=== PATIENT | male | born 1990 | race Two or more races ===

== ENCOUNTER 2024-05-10 20:20 | Inpatient (IN) | payer BC, OTHER ==
[~2024-05-10] VITALS: Ht 172.7 cm; Wt 83.5 kg
[2024-05-10 21:23] LABS: Basophils # (auto) 0.1 10 ^3/uL (0-0.2); Basophils % (auto) 0.5 % (0.0-2.0); Eosinophils # (auto) 0 10 ^3/uL (0-0.8); Eosinophils % (auto) 0.4 % (0.0-7.0); Hematocrit 40.3 % (41.0-53.0); Lymphocytes % (auto) 18.7 % (10.0-50.0); Mean Corpuscular Hemoglobin 29.6 pg (28.0-32.0); Mean Corpuscular Hgb Conc. 34.7 g/dL (32.0-36.0); Mean Corpuscular Volume 85.2 fL (80.0-100.0); Monocytes # (auto) 0.5 10 ^3/uL (0-1.3); Monocytes % (auto) 4.8 % (0.0-12.0); Neutrophils # (auto) 8.3 10 ^3/uL (1.6-8.6); Neutrophils % (auto) 75.6 % (37.0-80.0); Platelet Count (auto) 197 10^3/uL (140-450); Red Blood Cells 4.73 10^6/uL (4.5-5.90); Red Cell Distribution Width 13.1 % (11.8-14.3); White Blood Cell 10.9 10^3/uL (4.4-10.8)
[2024-05-10 21:35] LABS: Chloride 104 mmol/L (98-107); Potassium 3.8 mmol/L (3.5-5.1); Sodium 140 mmol/L (136-145)
[2024-05-10 21:36] VITALS: PULSE 89; RESP 17; O2SAT 97
[2024-05-10 21:36] LABS: Anion Gap 6 (5-15); Calcium 9.8 mg/dL (8.7-10.4); Carbon Dioxide 30 mmol/L (20-31)
[2024-05-10 21:41] LABS: BUN/Creatinine Ratio 14.5 (10.0-20.0); Blood Urea Nitrogen 12 mg/dL (9-23); Glucose 102 mg/dL (74-106)
--- NOTE | 2024-05-10 21:54 | DVH ---
CHEST RADIOGRAPH Indication: sob Technique: Single frontal view of the chest was obtained Comparison: None FINDINGS: Lines and Tubes: None Lungs: No focal consolidation. Pleura: No effusion. No pneumothorax. Cardiomediastinal contours: Unremarkable Bones: No acute osseous abnormality. IMPRESSION: 1. No acute cardiopulmonary disease. HS:Y
[2024-05-10] MEDS: fentaNYL CITRATE 100 MCG/2 ML VL IV ONE (21:56)
[2024-05-10] MEDS: LORazepam 2MG/ML-1ML VIAL IV ONE (22:02)
[2024-05-10] MEDS: SODIUM CHLORIDE 0.9% 1,000 ML IV ONE (22:02)
[2024-05-10] MEDS: cefTRIAXone 1GM/50ML D5W 50 ML IV ONE (22:02)
--- NOTE | 2024-05-10 22:17 | DVH ---
Indication: rlq pain Technique: CT axial images of the abdomen and pelvis are obtained without contrast. Coronal and sagit meredith reformats were obtained. Radiation Dose Information: CTDI volume is 6.4 mGy. Dose-length product is 335 mGy*cm Comparison: None FINDINGS: There is limited interpretation of the abdomen and pelvis without administration of intravenous contr ast. Pulmonary emphysematous changes. Adrenal glands, spleen, pancreas liver unremarkable in shape. No CT evidence for cholelithiasis. Kidneys demonstrate no hydronephrosis. Stomach is partially distended. Small bowel loops normal in caliber. Moderate volume stool within the colon. Appendix is inflamed and measures 10 mm in diameter. 2 mm appendicolith. Periappendiceal stranding. Bladder partially distended. No free pelvic fluid. No inguinal lymphadenopathy. IMPRESSION: 1. Acute appendicitis. Findings were communicated to Dr. Dukes at 2212 hours on 05/11/2024.
[2024-05-10 22:33] LABS: Blood Alcohol < 3.0 mg/dL (<10)
--- NOTE | 2024-05-10 22:38 | ED.PDOC ---
History of Present Illness HPI Comments 34 y/o M presents with c/o non-radiating, RLQ abdominal pain, today. Patient reports sudden and unprovoked onset of symptoms at around 1300, this evening, that has been, progressively, worsening since. He denies any nausea, vomiting, or diarrhea along with having any significant medical or surgical history. He does admit to heavy alcohol consumption, lately, which includes 1x beer every day. Chief Complaint: Abdominal Pain Time Seen by MD: 20:50 Reviewed Notes: Nurses Notes, Medications, Allergies Allergies: Coded Allergies: NO KNOWN ALLERGIES (Unverified , 05/10/24) Information Source: Patient Mode of Arrival: Ambulatory Past Medical History PAST MEDICAL HISTORY: Denies Surgical History: Denies all surgeries Social History Smoker: Non-Smoker Alcohol: Denies ETOH Use Drugs: Denies Drug Use Lives In: Home All Other Systems: Reviewed and Negative (Comprehensive systems review obtained and negative except for what is stated in the HPI.) Physical Exam General Appearance: No Apparent Distress, Normal, Other (mildly anxious, slightly tremulous) HEENT: Normal ENT Inspection, Pharynx Normal, TMs Normal Neck: Full Range of Motion, Non-Tender, Normal, Normal Inspection Respiratory: Chest Non-Tender, Lungs Clear, No Accessory Muscle Use, No Respiratory Distress, Normal Breath Sounds Cardiovascular: No Edema, No JVD, No Murmur, No Gallop, Normal Peripheral Pulses, Regular Rate/Rhythm Breast Exam: Deferred Gastrointestinal: No Organomegaly, No Pulsatile Mass, Normal Bowel Sounds, RLQ (tenderness ), Soft Genitalia: Deferred Pelvic: Deferred Rectal: Deferred Extremities: No calf tenderness, Normal capillary refill, Normal inspection, Normal range of motion, Non-tender, No pedal edema Musculoskeletal : Apperance: Normal Neurologic: Alert, saw filer II-XII nml as Tested, No Motor Deficits, Normal Affect, Normal Mood, No Sensory Deficits Cerebellar Function: Normal Reflexes: Normal Skin: Dry, Normal Color, Warm Lymphatic: No Adenopathy Was a procedure done? Was a procedure done?: No Differential Dx Considerations may include: appendicitis, diverticulitis, cholelithiasis, cholecystitis, pyelonephritis, nephrolithiasis, gastritis, gastroenteritis, among others X-Ray, Labs, Meds, VS Vital Signs Date Time Temp Pulse Resp B/P (MAP) Pulse Ox O2 Delivery O2 Flow Rate FiO2 05/10/24 21:56 164/104 05/10/24 21:36 89 17 97 Room Air* 0 21 05/10/24 21:35 98.3 89 19 164/103 (123) 100 98.3 05/10/24 20:21 98.7 95 20 166/86 (112) 99 98.7 Lab Test 05/10/24 21:10 Range/Units White Blood Count 10.9 H 4.4-10.8 10^3/uL Red Blood Count 4.73 4.5-5.90 10^6/uL Hemoglobin 14.0 13.5-17.5 g/dL Hematocrit 40.3 L 41.0-53.0 % Mean Corpuscular Volume 85.2 80.0-100.0 fL Mean Corpuscular Hemoglobin 29.6 28.0-32.0 pg Mean Corpuscular Hemoglobin Concent 34.7 32.0-36.0 g/dL Red Cell Distribution Width 13.1 11.8-14.3 % Platelet Count 197 140-450 10^3/uL Mean Platelet Volume 8.8 6.9-10.8 fL Neutrophils (%) (Auto) 75.6 37.0-80.0 % Lymphocytes (%) (Auto) 18.7 10.0-50.0 % Monocytes (%) (Auto) 4.8 0.0-12.0 % Eosinophils (%) (Auto) 0.4 0.0-7.0 % Basophils (%) (Auto) 0.5 0.0-2.0 % Neutrophils # (Auto) 8.3 1.6-8.6 10 ^3/uL Lymphocytes # (Auto) 2.0 0.4-5.4 10 ^3/uL Monocytes # (Auto) 0.5 0-1.3 10 ^3/uL Eosinophils # (Auto) 0 0-0.8 10 ^3/uL Basophils # (Auto) 0.1 0-0.2 10 ^3/uL Nucleated Red Blood Cells 0.0 % Sodium Level 140 136-145 mmol/L Potassium Level 3.8 3.5-5.1 mmol/L Chloride Level 104 98-107 mmol/L Carbon Dioxide Level 30 20-31 mmol/L Anion Gap 6 5-15 Blood Urea Nitrogen 12 9-23 mg/dL Creatinine 0.83 0.700-1.30 mg/dL Glomerular Filtration Rate Calc 119 >90 mL/min BUN/Creatinine Ratio 14.5 10.0-20.0 Serum Glucose 102 74-106 mg/dL Calcium Level 9.8 8.7-10.4 mg/dL Plasma/Serum Blood Alcohol < 3.0 <10 mg/dL Current Medications Medications (Trade) Dose Ordered Sig/Mary Beth Route Start Time Stop Time Status Last Admin Lorazepam (Ativan Inj) 0.5 mg ONCE ONCE IV 05/10/24 21:30 05/10/24 21:31 DC 05/10/24 22:02 Fentanyl Citrate 12.5 mcg ONCE ONCE IV 05/10/24 21:30 05/10/24 21:31 DC 05/10/24 21:56 Sodium Chloride 1,000 ml @ 1,000 mls/hr Q1H ONCE IV 05/10/24 21:30 05/10/24 22:29 DC 05/10/24 22:02 Ceftriaxone Sodium 50 ml @ 100 mls/hr ONCE ONCE IV 05/10/24 21:30 05/10/24 21:59 DC 05/10/24 22:02 [place] [address] Ph: [phone] DIAGNOSTIC IMAGING Diagnostic Imaging Report : [id number] Signed PATIENT: KARINE GRAVES ACCT: [id number] UNIT: [id number] : 1990 LOC: ER ROOM / BED: / AGE / SEX: 34 / M ADM STATUS: REG ER SERVICE 57 ORDERING PHYSICIAN: CAROLA WILKS MD PROCEDURE(s): CXR1 - CHEST XRAY 1 VIEW REASON: sob ORDER NUMBER(s): [id number], ACCESSION NUMBER(s): [id number] CHEST RADIOGRAPH Indication: sob Technique: Single frontal view of the chest was obtained Comparison: None FINDINGS: Lines and Tubes: None Lungs: No focal consolidation. Pleura: No effusion. No pneumothorax. Cardiomediastinal contours: Unremarkable Bones: No acute osseous abnormality. IMPRESSION: 1. No acute cardiopulmonary disease. HS:Y ATED BY: MOON QUICK Jr. DO DICTATED DATE/TIME: 05/10/242151 SIGNED BY: MOON QUICK Jr., DO SIGNED DATE/TIME: 05/10/242151 CC: [place] [address] Ph: [phone] DIAGNOSTIC IMAGING Diagnostic Imaging Report : [id number] Signed PATIENT: KARINE GRAVES ACCT: [id number] UNIT: [id number] : 1990 LOC: ER ROOM / BED: / AGE / SEX: 34 / M ADM STATUS: REG ER SERVICE 16 ORDERING PHYSICIAN: CAROLA WILKS MD PROCEDURE(s): ABPL - CT AB PEL WO CON-NO ORAL OR IV REASON: rlq pain ORDER NUMBER(s): [id number], ACCESSION NUMBER(s): [id number] Indication: rlq pain Technique: CT axial images of the abdomen and pelvis are obtained without contrast. Coronal and sagittal reformats were obtained. Radiation Dose Information: CTDI volume is 6.4 mGy. Dose-length product is 335 mGy*cm Comparison: None FINDINGS: There is limited interpretation of the abdomen and pelvis without administration of intravenous contrast. Pulmonary emphysematous changes. Adrenal glands, spleen, pancreas liver unremarkable in shape. No CT evidence for cholelithiasis. Kidneys demonstrate no hydronephrosis. Stomach is partially distended. Small bowel loops normal in caliber. Moderate volume stool within the colon. Appendix is inflamed and measures 10 mm in diameter. 2 mm appendicolith. Periappendiceal stranding. Bladder partially distended. No free pelvic fluid. No inguinal lymphadenopathy. IMPRESSION: 1. Acute appendicitis. Findings were communicated to Dr. Wilks at 2212 hours on 05/11/2024. ATED BY: KENDRICK MCDANIEL MD DICTATED DATE/TIME: 05/10/242214 SIGNED BY: KENDRICK MCDANIEL MD SIGNED DATE/TIME: 05/10/242214 CC: Time of 1ST Reevaluation: 21:20 Reevaluation 1ST: Unchanged Time of 2ND Reevaluation: 22:38 Reevaluation 2ND: Unchanged Patient Education/Counseling: Diagnosis, Treatment, Prognosis, Need For Follow Up Family Education/Counseling: No Family Present Additional Information Previous visit documents reviewed: n/a The following tests were ordered, and results were reviewed by me: CT abdomen/pelvis w/o contrast, CXR, blood alcohol, UA, rapid influenza A/B test, BMP, CBC, CXR Additional Information was gathered from interviewing the following independent historians: n/a I reviewed and agreed with the following test results read by other providers: CT abdomen/pelvis w/o contrast, CXR I discussed treatment and results with medical personnel and: Patient we are consulting Dr Solomon, surgery and hospitalist to admit Departure 1 Departure Time of Disposition: 22:39 Impression: Primary Impression: Appendicitis Qualified Codes: K35.80 - Unspecified acute appendicitis Disposition: ADMITTED INPATIENT Admit to: Med Surg Condition: Stable Discharged With: Self Critical Care Note Critical Care Time?: Yes (55 min-critical care time only) Critical care comment: Due to concerns for patients condition deteriorating, the care required my highest level of attention and readiness to intervene. I assessed the patient, reviewed the medical records, ordered the appropriate tests and treatments, then reassessed for results and responsiveness. I communicated with medical personnel and consultants and formulated a plan of care. Total critical care time excludes any procedures Stability Stability form required: No Heart Score Heart Score: Heart Score Response (Comments) Value History N/A 0 EKG N/A 0 Age N/A 0 Risk Factors N/A 0 Troponin N/A 0 Total 0 I personally scribed for CAROLA WILKS MD ([email or web address]) on 05/10/24 at 22:38. Electronically submitted by Ravinder Shepherd ([email or web address]). CAROLA WILKS MD May 10, 2024 22:38
[2024-05-11] VITALS (8 sets, daily range): BP systolic 123–134; BP diastolic 67–97; PULSE 73–96; RESP 16–20; TEMP 97.9–98.8; O2SAT 95–100
[2024-05-11 01:14] LABS: Urine Bacteria None Seen /hpf (None Seen)
[2024-05-11 01:22] LABS: Urine Blood Negative /uL (Negative); Urine Clarity Clear (Clear); Urine Color Light-Yellow (Yellow); Urine Mucus FEW (None Seen); Urine Protein, UAD Negative (Negative); Urine Specific Gravity 1.027 (1.001-1.035); Urine Squamous Epithelial Cell None Seen /hpf (<5); Urine Urobilinogen Normal (Negative); Urine WBC < 1 /HPF (0-3); Urine pH 6.5 (5.0-9.0)
[2024-05-11] MEDS ORDERED: MORPHINE SULFATE INJ 2 MG/ml SYRG IV PRN (04:45)
[2024-05-11] MEDS ORDERED: NITROGLYCERIN 0.4 MG SL TAB SL PRN (04:45)
[2024-05-11] MEDS: CIPROFLOXACIN 400MG/200ML 200 ML IV ONE (05:02)
[2024-05-11] MEDS ORDERED: LORazepam 2MG/ML-1ML VIAL IM PRN (05:15)
--- NOTE | 2024-05-11 05:16 | DVHHPRES ---
History of Present Illness Resident Creating Document: HOME LATIF RESIDENT History of Present Illness Mr. Monk,a 34-year-old male presented with non-radiating right lower quadrant abdominal pain that began suddenly and unprovoked at around 13:00 of 05/10, progressively worsening since. He denies nausea, vomiting, diarrhea, and has no significant medical or surgical history. He admits to heavy alcohol consumption, drinking one beer daily, last drink yesterday. No known allergies, and arrived ambulatory. He is a non-smoker, denies drug use, and lives at home. Was found to have acute appendicitis, admitted for surgical evaluation and management. Past Medical History None Past Surgical History None Smoke: No ALCOHOL: heavy Drugs: None Lives: with Family (at home. ) Review of Systems Constitutional: Yes: Malaise; No: Fever, Chills, Sweats, Weakness, Other Eyes: No: Pain, Vision change, Conjunctivae inflammation, Eyelid inflammation, Other, Redness ENT: No: Ear pain, Ear discharge, Nose pain, Nose discharge, Nose congestion, Mouth pain, Mouth swelling, Throat pain, Throat swelling, Other Respiratory: No: Cough, Dry, Shortness of breath, SOB with excertion, Wheezing, Hemoptysis, Pleuritic Pain, Sputum, Wheezing, Other Cardiovascular: No: Chest Pain, Palpitations, Orthopnea, Paroxysmal Noc. Dyspnea, Edema, Lt Headedness, Other Gastrointestinal: Abdominal Pain; No: Nausea, Vomiting, Diarrhea, Constipation, Melena, Hematochezia, Other Genitourinary: No Dysuria, No Frequency, No Incontinence, No Hematuria, No Retention, No Other Musculoskeletal: No: other, neck pain, shoulder pain, arm pain, back pain, hand pain, leg pain, foot pain Skin: No: Rash, Lesions, Jaundice, Bruising, Other Neurological: No: Weakness, Numbness, Incoordination, Change in speech, Confusion, Seizures, Other Allergies: Coded Allergies: NO KNOWN ALLERGIES (Unverified , 05/10/24) Medications Current Medications Medications Dose Ordered Sig/Mary Beth Route Start Time Stop Time Status Last Admin Dose Admin Nitroglycerin 0.4 mg Q5MINP PRN SL 05/11/24 04:45 Morphine Sulfate 2 mg Q30M PRN IV 05/11/24 04:45 Ciprofloxacin 200 ml @ 200 mls/hr Q12HR IV 05/11/24 22:00 Metronidazole 100 ml @ 100 mls/hr Q8HR IV 05/11/24 14:00 Exam Vital Signs Vital Signs Date Time Temp Pulse Resp B/P (MAP) Pulse Ox O2 Delivery O2 Flow Rate FiO2 05/10/24 21:56 164/104 05/10/24 21:36 89 17 97 Room Air* 0 21 05/10/24 21:35 98.3 98.3 General Appearance: Alert, Oriented X3, Cooperative, No acute distress HEENT: Atraumatic, PERRLA, EOMI, Mucous membr. moist/pink Respiratory: Clear to auscultation, Normal air movement Cardiovascular: Regular rate, Normal S1, Normal S2, No murmurs, Gallops, Rubs Abdominal: Soft, Other (RLQ tenderness, rovsing +ve) Extremities: No clubbing, No cyanosis, No edema, Normal pulses, No tenderness/swelling Skin: No rashes, No breakdown, No significant lesion Neuro: Normal gait, Normal speech, Strength at 5/5 X4 ext, Normal tone, Sensation intact, Cranial nerves 3-12 NL, Reflexes 2+ Psych/Mental Status: Mental status NL, Mood NL Labs/Xrays Labs Test 05/10/24 21:16 05/10/24 21:10 Range/Units Urine Color Light-yellow Yellow Urine Clarity Clear Clear Urine pH 6.5 5.0-9.0 Urine Specific [place] 1.027 1.001-1.035 Urine Protein Negative Negative Urine Ketones Negative Negative Urine Blood Negative Negative /uL Urine Nitrite Negative Negative Urine Bilirubin Negative Negative Urine Urobilinogen Normal Negative mg/dL Urine Leukocyte Esterase Negative Negative /uL Urine RBC None seen 0 - 3 /hpf Urine Microscopic WBC < 1 0-3 /HPF Urine Squamous Epithelial Cells None seen <5 /hpf Urine Bacteria None seen None Seen /hpf Urine Mucus Few None Seen Urine Glucose Normal Normal mg/dL White Blood Count 10.9 H 4.4-10.8 10^3/uL Red Blood Count 4.73 4.5-5.90 10^6/uL Hemoglobin 14.0 13.5-17.5 g/dL Hematocrit 40.3 L 41.0-53.0 % Mean Corpuscular Volume 85.2 80.0-100.0 fL Mean Corpuscular Hemoglobin 29.6 28.0-32.0 pg Mean Corpuscular Hemoglobin Concent 34.7 32.0-36.0 g/dL Red Cell Distribution Width 13.1 11.8-14.3 % Platelet Count 197 140-450 10^3/uL Mean Platelet Volume 8.8 6.9-10.8 fL Neutrophils (%) (Auto) 75.6 37.0-80.0 % Lymphocytes (%) (Auto) 18.7 10.0-50.0 % Monocytes (%) (Auto) 4.8 0.0-12.0 % Eosinophils (%) (Auto) 0.4 0.0-7.0 % Basophils (%) (Auto) 0.5 0.0-2.0 % Neutrophils # (Auto) 8.3 1.6-8.6 10 ^3/uL Lymphocytes # (Auto) 2.0 0.4-5.4 10 ^3/uL Monocytes # (Auto) 0.5 0-1.3 10 ^3/uL Eosinophils # (Auto) 0 0-0.8 10 ^3/uL Basophils # (Auto) 0.1 0-0.2 10 ^3/uL Nucleated Red Blood Cells 0.0 % Sodium Level 140 136-145 mmol/L Potassium Level 3.8 3.5-5.1 mmol/L Chloride Level 104 98-107 mmol/L Carbon Dioxide Level 30 20-31 mmol/L Anion Gap 6 5-15 Blood Urea Nitrogen 12 9-23 mg/dL Creatinine 0.83 0.700-1.30 mg/dL Glomerular Filtration Rate Calc 119 >90 mL/min BUN/Creatinine Ratio 14.5 10.0-20.0 Serum Glucose 102 74-106 mg/dL Calcium Level 9.8 8.7-10.4 mg/dL Plasma/Serum Blood Alcohol < 3.0 <10 mg/dL Assessment/Plan Assessment/Plan # acute appendicitis: Presented with acute abdominal pain, CT evident Appendix is inflamed and measures 10 mm in diameter. 2 mm appendicolith. Periappendiceal stranding. Mild leukocytosis, hemodynamically stable, presented with acute abdominal pain, lactate, lipase, CMP pending. NPO for now, IV fluid to continue, wait for surgical evaluation and possible surgical intervention. With lap appendicectomy, as needed IV morphine for pain management. IV antibiotic coverage with Cipro + Flagyl till surgery rules out any ruptures/complications. # hypertension: Patient does not have any history of hypertension, blood pressure elevated if needed use clonidine 0.1, t.i.d. when patient can tolerate oral, otherwise use hydralazine if the systolic blood pressure over 150. [place] blood pressure 140/90 or below as per AHA/ACC guidelines , pending EKG and echo for preoperative risk assessment only # moderate alcohol use: Daily alcohol consumption with at least 1 beer, patient is counseled regarding detrimental effects of alcohol, close follow up to rule out any withdrawal symptoms. IV thiamine, folate to continue, banana bag when available. # Risk of possible refeeding syndrome: when patient starts oral diet in poor nutrition, moderate alcohol abuse look for electrolytes on daily basis. # poor health follow up: Patient is advice to follow up with primary care physician closely post discharge. # GI prophylaxis: IV PPI daily # DVT prophylaxis: Mostly mobile, SCDs for now if patient becomes immobile, consider starting enoxaparin sc. Code status: Full code, discussed at bedside, including care plan and management which patient is agreeable, needed total [address] Cao Plan discussed with: Patient, Other (RN) My Orders Orders - HOME LATIF RESIDENT Procedure Category Date Status Time Admit ADMIT 05/11/24 Transmitted 04:40 Nitroglycerin PHA 05/11/24 In Process Sublingual (Ntrostat 04:45 Morphine Sulfate PHA 05/11/24 In Process Injection 04:45 Oxygen By Nasal RT 05/11/24 Transmitted Cannula 04:40 Stat Ekg For Chest CANDI 05/11/24 In Process Pain 04:40 Notify Md Of Changes CANDI 05/11/24 In Process From Base 04:40 Retail Analyst For CANDI 05/11/24 In Process 24 Hours 04:40 Emergency Dysrhythmia CANDI 05/11/24 In Process Protocol 04:40 Rhythm Strips Once CANDI 05/11/24 In Process Every Shift 04:40 Ciprofloxacin PHA 05/11/24 In Process 400mg/200ml (Cipro Iv) 04:45 Metronidazole PHA 05/11/24 In Process 500mg/100ml (Flagyl 04:45 Ciprofloxacin PHA 05/11/24 In Process 400mg/200ml (Cipro Iv) 22:00 Metronidazole PHA 05/11/24 In Process 500mg/100ml (Flagyl 14:00 * Surgical Consult CONS 05/11/24 Transmitted Complete Blood Count LAB 05/11/24 Logged 04:44 Comprehensive LAB 05/11/24 Logged Metabolic Panel 04:44 Drug Screen LAB 05/11/24 Logged 04:44 Npo (Nothing By DIET 05/11/24 Transmitted Mouth) Diet Breakfast Lactated Ringers Lr PHA 05/11/24 Transmitted 04:45 Urinalysis LAB 05/11/24 Logged 04:44 Prothrombin Time W/ LAB 05/11/24 Logged INR 04:44 Lipase LAB 05/11/24 Logged 04:44 Lactic Acid W/ Reflex LAB 05/11/24 Logged Order 04:44 Pantoprazole PHA 05/11/24 Transmitted (Protonix) 06:00 Thiamine Inj PHA 05/11/24 Transmitted 04:45 Thiamine Inj PHA 05/11/24 Transmitted 10:00 Folic Acid Ivpb PHA 05/11/24 Transmitted 10:00 Banana Bag Ns PHA 05/11/24 Transmitted 18:00 Thyroid Stimulating LAB 05/11/24 Logged Hormone 04:44 Clonidine Hcl Tablet PHA 05/11/24 Transmitted (Catapres Tablet) 06:00 Hydralazine Injection PHA 05/11/24 Transmitted (Apresoline Inject 06:00 Date of Service: May 11, 2024 Billing Provider: BARBARA CAO MD Common Visit Codes: [id number] INP/OBS CARE (HIGH) HOME LATIF RESIDENT May 11, 2024 05:16 BARBARA CAO MD May 11, 2024 11:26
[2024-05-11] MEDS: metroNIDAZOLE 500MG/100ML 100 ML IV ONE (05:31)
[2024-05-11 05:36] LABS: Basophils # (auto) 0 10 ^3/uL (0-0.2); Basophils % (auto) 0.4 % (0.0-2.0); Eosinophils # (auto) 0 10 ^3/uL (0-0.8); Eosinophils % (auto) 0.1 % (0.0-7.0); Hematocrit 42.2 % (41.0-53.0); Hemoglobin 14.3 g/dL (13.5-17.5); Lymphocytes # (auto) 1.6 10 ^3/uL (0.4-5.4); Lymphocytes % (auto) 16.2 % (10.0-50.0); Mean Corpuscular Hemoglobin 29.1 pg (28.0-32.0); Mean Corpuscular Hgb Conc. 33.9 g/dL (32.0-36.0); Mean Corpuscular Volume 86.1 fL (80.0-100.0); Monocytes # (auto) 0.6 10 ^3/uL (0-1.3); Monocytes % (auto) 6.4 % (0.0-12.0); Neutrophils # (auto) 7.5 10 ^3/uL (1.6-8.6); Neutrophils % (auto) 76.9 % (37.0-80.0); Platelet Count (auto) 185 10^3/uL (140-450); Red Blood Cells 4.91 10^6/uL (4.5-5.90); Red Cell Distribution Width 12.9 % (11.8-14.3); White Blood Cell 9.7 10^3/uL (4.4-10.8)
[2024-05-11 05:51] LABS: Alanine Aminotransferase 29 U/L (7-40); Alkaline Phosphatase 77 U/L (46-116); Anion Gap 6 (5-15); BUN/Creatinine Ratio 12.8 (10.0-20.0); Blood Urea Nitrogen 10 mg/dL (9-23); Carbon Dioxide 27 mmol/L (20-31); Chloride 105 mmol/L (98-107); Glucose 104 mg/dL (74-106); Lipase 25 U/L (12-53); Sodium 138 mmol/L (136-145); Total Protein 7.4 g/dL (5.7-8.2)
[2024-05-11 05:52] LABS: Albumin 5.2 g/dL (3.2-4.8); Aspartate Aminotransferase 11 U/L (13-40); Bilirubin, Total 1.3 mg/dL (0.2-1.0)
[2024-05-11] MEDS: LACTATED RINGER'S 1,000 ML IV ONE (05:54)
[2024-05-11] MEDS: THIAMINE 100mg/ml INJ (200mg/2ml VIAL) IV ONE (05:54)
[2024-05-11 06:04] LABS: INR 1.02 (0.9-1.15); Prothrombin Time 10.8 sec (9.3-11.8)
[2024-05-11 06:22] LABS: Rapid Influenza A Negative (Negative); Rapid Influenza B Negative (Negative)
--- NOTE | 2024-05-11 10:24 | DVHINCON2 ---
Date of service: May 11, 2024 Reason for Consultation appendicitis History of Present Illness History Source: Patient Exam Limitations: No limitations HPI 34 year old male presented to the ER with complaint of right lower quadrant pain for the past 24 hours. Patient states the pain is sharp 10/10 to RLQ. Denies nausea,fever and vomiting. Chief Complaint of Abdominal/F: Abdominal pain Location of Abdominal Onset: RLQ Past Medical History Cardiac: No pertinent Hx Pulmonary: No pertinent Hx Central Nervous System: No pertinent Hx GI: No pertinent Hx Hemotology/Oncology: No pertinent Hx Hepatobiliary: No pertinent Hx Psychiatric: No pertinent Hx Musculoskeletal: No pertinent Hx Rheumotologic: No pertinent Hx Infectious Disease: No peritnent Hx ENT: No pertinent Hx Renal/: No pertinent Hx Endocrine: No pertinent Hx Dermatology: No pertinent Hx Past Surgical History: No pertinent Hx Family History: No pertinent Hx Patient Family History: Diabetes mellitus G8 FATHER Smoker: No Hx (Negative) Alocohol: Moderate, Heavy (one beer daily) Drugs: None Lives with: With family Review of Systems Constitutional: No symptom reported Ears, Nose, & Throat: No symptom reported Eyes: No symptom reported Pulmonary/Respiratory: No symptom reported Cardiovascular: No symptom reported Gastrointestinal: Abdominal Pain Genitourinary: No symptom reported Musculoskeletal: No symptom reported Skin: No symptom reported Psychiatric: No symptom reported Endocrine: No symptom reported Hemotologic/Lymphatic: No symptom reported H&P Exam Vital Signs Vital Signs Date Time Temp Pulse Resp B/P (MAP) Pulse Ox O2 Delivery O2 Flow Rate FiO2 05/11/24 09:26 98.0 73 16 130/97 (108) 100 98.0 05/11/24 08:40 Room Air* 0 21 General Appeara: Well developed, Well nourished, Normal Appearance Head Exam: Normal inspection Neck Exam: Normal inspection Nasal Exam: Normal inspection Mouth: Normal Inspection Pulmonary/Respiratory: Normal inspection Cardiovascular/Chest: Normal inspection, Regular rate, Normal Rhythm Abdominal Exam: Normal bowel sounds, Other (right lower quadrant tender ) Abdominal Pain Onset Location: RLQ [employer] Exam: Normal hearing, Normal speech, PERRL Neuro/Mental St: Alert, Oriented Appearance: Appropriate appearance Eye contact/ Speech: Cooperative, Good eye contact, Normal speech Skin Exam: Normal inspection, Normal color, Warm/dry Labs/Xrays Labs Test 05/11/24 05:30 05/11/24 05:05 05/10/24 21:16 05/10/24 21:10 Range/Units Influenza Type A Antigen Negative Negative Influenza Type B Antigen Negative Negative White Blood Count 9.7 4.4-10.8 10^3/uL Red Blood Count 4.91 4.5-5.90 10^6/uL Hemoglobin 14.3 13.5-17.5 g/dL Hematocrit 42.2 41.0-53.0 % Mean Corpuscular Volume 86.1 80.0-100.0 fL Mean Corpuscular Hemoglobin 29.1 28.0-32.0 pg Mean Corpuscular Hemoglobin Concent 33.9 32.0-36.0 g/dL Red Cell Distribution Width 12.9 11.8-14.3 % Platelet Count 185 140-450 10^3/uL Mean Platelet Volume 9.4 6.9-10.8 fL Neutrophils (%) (Auto) 76.9 37.0-80.0 % Lymphocytes (%) (Auto) 16.2 10.0-50.0 % Monocytes (%) (Auto) 6.4 0.0-12.0 % Eosinophils (%) (Auto) 0.1 0.0-7.0 % Basophils (%) (Auto) 0.4 0.0-2.0 % Neutrophils # (Auto) 7.5 1.6-8.6 10 ^3/uL Lymphocytes # (Auto) 1.6 0.4-5.4 10 ^3/uL Monocytes # (Auto) 0.6 0-1.3 10 ^3/uL Eosinophils # (Auto) 0 0-0.8 10 ^3/uL Basophils # (Auto) 0 0-0.2 10 ^3/uL Nucleated Red Blood Cells 0.0 % Prothrombin Time 10.8 9.3-11.8 sec Prothrombin Time INR 1.02 0.9-1.15 Sodium Level 138 136-145 mmol/L Potassium Level 4.0 3.5-5.1 mmol/L Chloride Level 105 98-107 mmol/L Carbon Dioxide Level 27 20-31 mmol/L Anion Gap 6 5-15 Blood Urea Nitrogen 10 9-23 mg/dL Creatinine 0.78 0.700-1.30 mg/dL Glomerular Filtration Rate Calc 122 >90 mL/min BUN/Creatinine Ratio 12.8 10.0-20.0 Serum Glucose 104 74-106 mg/dL Lactic Acid Level 1.0 0.4-2.0 mmol/L Calcium Level 10.0 8.7-10.4 mg/dL Total Bilirubin 1.3 H 0.2-1.0 mg/dL Aspartate Amino Transferase (AST) 11 L 13-40 U/L Alanine Aminotransferase (ALT) 29 7-40 U/L Alkaline Phosphatase 77 46-116 U/L Total Protein 7.4 5.7-8.2 g/dL Albumin 5.2 H 3.2-4.8 g/dL Lipase 25 12-53 U/L Thyroid Stimulating Hormone (TSH) 2.16 0.55-4.78 uIU/mL Urine Color Light-yellow Yellow Urine Clarity Clear Clear Urine pH 6.5 5.0-9.0 Urine Specific [place] 1.027 1.001-1.035 Urine Protein Negative Negative Urine Ketones Negative Negative Urine Blood Negative Negative /uL Urine Nitrite Negative Negative Urine Bilirubin Negative Negative Urine Urobilinogen Normal Negative mg/dL Urine Leukocyte Esterase Negative Negative /uL Urine RBC None seen 0 - 3 /hpf Urine Microscopic WBC < 1 0-3 /HPF Urine Squamous Epithelial Cells None seen <5 /hpf Urine Bacteria None seen None Seen /hpf Urine Mucus Few None Seen Urine Glucose Normal Normal mg/dL Plasma/Serum Blood Alcohol < 3.0 <10 mg/dL Assessment/Plan Problem List: (1) Appendicitis Plan patient complaint of right lower quadrant pain for the past day, RLQ tender to palpation , rebound tenderness Plan: Laparoscopic possibly open appendectomy today Plan discussed with: Patient, Other (Dr. Kahn) Visit Coding Surgery Date of Service if different f: May 11, 2024 Billing Provider: MAYRA KAHN MD Surgery Visit Codes: 04997 - INP CONSULT <80 MIN SIDDHARTHA CAICEDO [facility] May 11, 2024 10:24
[2024-05-11] MEDS ORDERED: HYDROmorphone HCL 2 MG/ML VL/or syr ONE (10:39)
[2024-05-11] MEDS ORDERED: MIDAZOLAM HCL 2MG/2ML 2ml VIAL (1mg/ml) ONE (10:39)
[2024-05-11] MEDS ORDERED: fentaNYL CITRATE 100 MCG/2 ML VL ONE (10:39)
[2024-05-11] MEDS: FOLIC ACID 1 MG in D5W 5% 50 ML INJ SCH (10:42)
[2024-05-11] MEDS: cloNIDine HCL 0.1 MG TAB PO SCH (10:42)
[2024-05-11] MEDS: PANTOPRAZOLE 40 MG/10 ML VIAL INJ IV SCH (10:42)
[2024-05-11] MEDS: hydrALAZINE HCL 20 MG/ML VL IV ONE (10:42)
[2024-05-11] MEDS: BUPIVACAINE HCL 0.25% P/F 10 ML VIAL ONE (11:10)
[2024-05-11] MEDS: LIDOCAINE W/ EPINEPHRINE 1% 20ML VIAL ONE (11:10)
[2024-05-11] MEDS ORDERED: DexAMETHasone SOD PHOS 10MG/1ML VIAL INJ ONE (11:23)
[2024-05-11] MEDS ORDERED: ONDANSETRON HCL 4 MG/2 ML VIAL ONE (11:23)
[2024-05-11] MEDS ORDERED: PROPOFOL 10 MG/ML 20 ML IV ONE (11:23)
[2024-05-11] MEDS ORDERED: SUGAMMADEX 200mg/2ml Vial (100MG/ML) IV ONE (11:24)
[2024-05-11] MEDS: D5W/SOD CHL 0.45%/KCL 20MEQ 1,000 ML IV SCH (11:30)
[2024-05-11] MEDS ORDERED: HYDROMORPHONE HCL 1 MG/ML INJ IV PRN (11:30)
[2024-05-11] MEDS ORDERED: ONDANSETRON HCL 4 MG/2 ML VIAL IV PRN (11:30)
--- NOTE | 2024-05-11 12:12 | DVHOP ---
DATE OF SURGERY: 05/11/2024 PREOPERATIVE DIAGNOSIS: Acute suppurative appendicitis. POSTOPERATIVE DIAGNOSIS: Acute suppurative appendicitis. SURGEON: Chuckie Kahn MD [facility] RECEPTIONIST: Cameron Barton. ANESTHESIA: General endotracheal. ANESTHESIOLOGIST: Dr. Pérez. PROCEDURE: Laparoscopy, laparoscopic appendectomy. DESCRIPTION OF PROCEDURE: Under general endotracheal anesthesia, with the patient's skin prepped and draped, a supraumbilical incision was made and Veress needle inserted into the peritoneal cavity by the hanging drop technique to establish pneumoperitoneum to 15 mmHg pressure by insufflation with carbon dioxide. With the abdomen fully distended, the needle was removed and replaced with a 5 mm trocar port through which a 0-degree viewing laparoscope was inserted and under direct vision, additional 5 and 10 mm ports inserted through the midline approximately 10 cm above the umbilicus and 5 cm beneath the umbilicus respectively. Instrumentation was then introduced and laparoscopy was conducted revealing no obvious unexpected pathology on the serosal surfaces visualized. The appendix was affected by acute appendicitis, was placed on tension traced to the confluence with the cecum at its base. At the confluence with the cecum, it was crossclamped and divided with an Endo-SAM stapler equipped with vascular myla. The fully severed appendix and the mesoappendix were then included in the specimen extraction bag and removed through the 10 mm port site. Subsequently, the right lower quadrant was profusely irrigated, irrigant was aspirated. Hemostasis was meticulously accomplished and found to be complete. At the termination of procedure, there was no bleeding from either the port sites or from the appendicectomy site. Pneumoperitoneum was then evacuated. Instrumentation was withdrawn. Wounds approximated using Monocryl sutures, Dermabond glue and Steri-Strips. The patient remained stable throughout the procedure, left the operating room following an accurate needle and sponge count. The patient's Meagan was thoroughly informed at [phone]. MD AME Echols/COURTNEY TID: [id number] RECEIPT: [id number]
[2024-05-11] MEDS: ceFAZolin 1GM/50ML 50 ML IV SCH (13:09)
[2024-05-11] MEDS: ACETAMINOPHEN/CODEINE#3 (300/30mg) TAB PO PRN (13:21)
[2024-05-11] MEDS ORDERED: metroNIDAZOLE 500MG/100ML 100 ML IV SCH (14:00)
[2024-05-11] MEDS: metroNIDAZOLE 500MG/100ML 100 ML IV SCH (14:16)
--- NOTE | 2024-05-11 14:52 | DVHPNRES ---
Progress Note Date Seen: May 11, 2024 Resident Creating Document: PARAMJIT SIMPSON RESIDENT Has the PT tested + for MRSA If YES, has PT been informed?: No Medical Necessity Reason Pt with a Central, PICC or Fol: No Subjective Review of Systems 34-year-old male presented with non-radiating right lower quadrant abdominal pain that began suddenly and unprovoked that started yesterday, progressively worsening since. He denies nausea, vomiting, diarrhea, and has no significant medical or surgical history. He admits alcohol dependency, drinking one beer daily, last drink yesterday.CT scan of the abdomen showed acute appendicitis, patient was found to have acute suppurative appendicitis, he underwent laparoscopic appendectomy today. Patient reports: No new complaints Changes from previous H/P or p: No Changes Review of Systems: HEENT:Normal, CVS:Normal, RESPIRATORY:Normal, GI:Normal, :Normal, MSK:Normal, NEURO:Normal Objective vital signs Vital Sign Date Time Temp Pulse Resp B/P (MAP) Pulse Ox O2 Delivery O2 Flow Rate FiO2 05/11/24 12:44 98.8 93 18 130/75 (93) 95 98.8 05/11/24 12:10 Nasal Cannula 2.0 94 Total Intake and Output 05/10/24 05/10/24 05/11/24 15:00 23:00 07:00 Intake Total 1050 ml Balance 1050 ml medications Current Medications Medications Dose Ordered Sig/Mary Beth Route Start Time Stop Time Status Last Admin Dose Admin Nitroglycerin 0.4 mg Q5MINP PRN SL 05/11/24 04:45 Morphine Sulfate 2 mg Q30M PRN IV 05/11/24 04:45 Ciprofloxacin 200 ml @ 200 mls/hr Q12HR IV 05/11/24 22:00 Future Hold Pantoprazole Sodium 40 mg DAILY IV 05/11/24 06:00 Thiamine HCl 100 mg DAILY IV 05/12/24 10:00 Folic Acid 1 mg/ Dextrose 50.2 ml @ 200.8 mls/ hr DAILY INJ 05/11/24 10:00 Folic Acid 1 mg/ Magnesium Sulfate 8 meq/ Multivitamins 10 ml/Thiamine HCl 100 mg/Sodium Chloride 1,013.2 ml @ 126.247 mls/hr DAILY@1800 INJ 05/11/24 18:00 Clonidine HCl 0.1 mg TID PO 05/11/24 06:00 Lorazepam 0.5 mg Q6HPRN PRN IM 05/11/24 05:15 Potassium Chloride/Dextrose/ Sod Cl 1,000 ml @ 100 mls/hr Q10H IV 05/11/24 11:30 Cefazolin Sodium 50 ml @ 100 mls/hr Q8H IV 05/11/24 13:00 05/11/24 13:09 100 MLS/HR Metronidazole 100 ml @ 100 mls/hr Q8HR IV 05/11/24 14:00 05/11/24 14:16 100 MLS/HR Hydromorphone HCl 1 mg Q3HPRN PRN IV 05/11/24 11:30 Acetaminophen/ Codeine Phosphate 1 tab Q4HP PRN PO 05/11/24 11:30 05/11/24 13:21 1 TAB Ondansetron HCl 4 mg Q4HPRN PRN IV 05/11/24 11:30 Examination Examination General Appearance: Alert, Oriented but drowsy after the surgery, Cooperative, No acute distress HEENT: EOMI Respiratory: Clear to auscultation, Normal air movement Cardiovascular: Regular rate, Normal S1, Normal S2 Abdominal: Normal bowel sounds,surgical dressings in the abdomen Extremities: No cyanosis, No edema, Normal pulses, No tenderness/swelling Skin: No rashes, No breakdown Psych/Mental Status: Mental status NL, Mood NL laboratory and microbiology Laboratory Tests 05/11/24 05:05 Test 05/11/24 05:05 Range/Units Serum Glucose 104 74-106 mg/dL Problem List/Assessment/Plan Problem List/Assessment/Plan # Acute abdominal pain due to acute suppurative appendicitis s/p laparoscopic appendectomy # Ruled out sepsis - PACU - IV antibiotic coverage with Cipro + Flagyl till surgery rules out any ruptures/complications. # Primary hypertension - Controlled # Alcohol abuse - Daily alcohol consumption with at least 1 beer, patient is counseled regarding detrimental effects of alcohol, close follow up to rule out any withdrawal symptoms. - monitor for withdrawal symptoms # GI prophylaxis: - IV PPI daily # DVT prophylaxis: - SCDs for now if patient becomes immobile, consider starting enoxaparin sc. case discussed with code status: full code Plan discussed with: Patient AGARWAL EPARAMJIT RESIDENT May 11, 2024 14:52
[2024-05-11 17:00] LABS: Urine Bacteria None Seen /hpf (None Seen)
[2024-05-11] MEDS: FOLIC ACID 1 MG, MAGNESIUM SULF SDV 50% 8 MEQ, MULTIPLE VITAMIN 10 ML, THIAMINE INJ 100... INJ SCH (17:26)
[2024-05-11 17:28] LABS: Urine Blood Negative /uL (Negative); Urine Clarity Clear (Clear); Urine Color Colorless (Yellow); Urine Protein, UAD Negative (Negative); Urine Specific Gravity 1.007 (1.001-1.035); Urine Squamous Epithelial Cell None Seen /hpf (<5); Urine Urobilinogen Normal (Negative); Urine WBC < 1 /HPF (0-3)
[2024-05-11 17:33] LABS: Amphetamine Screen, Urine Neg (NEGATIVE); Barbiturate Scree,Urine Neg (NEGATIVE); Benzodiazephine Screen, Urine Pos (NEGATIVE); Cannabinoid Screen, Urine Neg (NEGATIVE); Cocaine Screen, Urine Neg (NEGATIVE); Opiate Scree,Urine Pos (NEGATIVE); Phencyclidine Screen, Urine Neg (NEGATIVE)
[2024-05-11] MEDS ORDERED: CIPROFLOXACIN 400MG/200ML 200 ML IV SCH (22:00)
[2024-05-12 01:00] VITALS: BP 118/58; PULSE 74; RESP 20; TEMP 97.8; O2SAT 94
[2024-05-12 05:00] VITALS: BP 113/61; PULSE 71; RESP 20; TEMP 97.6; O2SAT 97
[2024-05-12 08:00] VITALS: PULSE 69; RESP 16; O2SAT 95
[2024-05-12 08:55] LABS: Basophils # (auto) 0 10 ^3/uL (0-0.2); Basophils % (auto) 0.3 % (0.0-2.0); Eosinophils # (auto) 0 10 ^3/uL (0-0.8); Hematocrit 35.6 % (41.0-53.0); Hemoglobin 12.5 g/dL (13.5-17.5); Lymphocytes # (auto) 1.1 10 ^3/uL (0.4-5.4); Lymphocytes % (auto) 13.7 % (10.0-50.0); Mean Corpuscular Hemoglobin 30.1 pg (28.0-32.0); Mean Corpuscular Hgb Conc. 35.2 g/dL (32.0-36.0); Mean Corpuscular Volume 85.5 fL (80.0-100.0); Monocytes # (auto) 0.5 10 ^3/uL (0-1.3); Monocytes % (auto) 6.5 % (0.0-12.0); Neutrophils # (auto) 6.6 10 ^3/uL (1.6-8.6); Neutrophils % (auto) 79.5 % (37.0-80.0); Platelet Count (auto) 175 10^3/uL (140-450); Red Blood Cells 4.17 10^6/uL (4.5-5.90); Red Cell Distribution Width 12.7 % (11.8-14.3); White Blood Cell 8.4 10^3/uL (4.4-10.8)
[2024-05-12 09:00] VITALS: BP 122/63; PULSE 69; RESP 16; TEMP 97.6; O2SAT 95
[2024-05-12 09:06] LABS: Sodium 139 mmol/L (136-145)
[2024-05-12 09:07] LABS: Anion Gap 7 (5-15); Calcium 9.2 mg/dL (8.7-10.4); Carbon Dioxide 24 mmol/L (20-31)
[2024-05-12 09:12] LABS: Chloride 108 mmol/L (98-107); Glucose 141 mg/dL (74-106)
[2024-05-12 09:14] LABS: BUN/Creatinine Ratio 10.9 (10.0-20.0); Blood Urea Nitrogen 7 mg/dL (9-23)
[2024-05-12] MEDS: THIAMINE 100mg/ml INJ (200mg/2ml VIAL) IV SCH (09:26)
--- NOTE | 2024-05-12 12:48 | DVHPN2 ---
Progress Note Date Seen: May 12, 2024 Has the PT tested + for MRSA If YES, has PT been informed?: No Medical Necessity Reason Pt with a Central, PICC or Fol: No Objective vital signs Vital Sign Date Time Temp Pulse Resp B/P (MAP) Pulse Ox O2 Delivery O2 Flow Rate FiO2 05/12/24 09:00 97.6 69 16 122/63 (82) 95 97.6 05/12/24 08:00 Room Air* 0 21 Total Intake and Output 05/11/24 05/11/24 05/12/24 14:59 22:59 06:59 Intake Total 100 ml 350 ml 1396 ml Output Total 500 ml 600 ml Balance 100 ml -150 ml 796 ml medications Current Medications Medications Dose Ordered Sig/Mary Beth Route Start Time Stop Time Status Last Admin Dose Admin Nitroglycerin 0.4 mg Q5MINP PRN SL 05/11/24 04:45 Morphine Sulfate 2 mg Q30M PRN IV 05/11/24 04:45 Ciprofloxacin 200 ml @ 200 mls/hr Q12HR IV 05/11/24 22:00 Hold Pantoprazole Sodium 40 mg DAILY IV 05/11/24 06:00 05/12/24 09:25 40 MG Thiamine HCl 100 mg DAILY IV 05/12/24 10:00 05/12/24 09:26 100 MG Folic Acid 1 mg/ Dextrose 50.2 ml @ 200.8 mls/ hr DAILY INJ 05/11/24 10:00 Folic Acid 1 mg/ Magnesium Sulfate 8 meq/ Multivitamins 10 ml/Thiamine HCl 100 mg/Sodium Chloride 1,013.2 ml @ 126.247 mls/hr DAILY@1800 INJ 05/11/24 18:00 05/11/24 17:26 126.247 MLS/HR Clonidine HCl 0.1 mg TID PO 05/11/24 06:00 05/12/24 05:36 0.1 MG Lorazepam 0.5 mg Q6HPRN PRN IM 05/11/24 05:15 Potassium Chloride/Dextrose/ Sod Cl 1,000 ml @ 100 mls/hr Q10H IV 05/11/24 11:30 05/12/24 00:54 100 MLS/HR Cefazolin Sodium 50 ml @ 100 mls/hr Q8H IV 05/11/24 13:00 05/12/24 04:17 100 MLS/HR Metronidazole 100 ml @ 100 mls/hr Q8HR IV 05/11/24 14:00 05/12/24 05:33 100 MLS/HR Hydromorphone HCl 1 mg Q3HPRN PRN IV 05/11/24 11:30 Acetaminophen/ Codeine Phosphate 1 tab Q4HP PRN PO 05/11/24 11:30 05/11/24 13:21 1 TAB Ondansetron HCl 4 mg Q4HPRN PRN IV 05/11/24 11:30 laboratory and microbiology Laboratory Tests 05/12/24 08:23 Test 05/12/24 08:23 Range/Units Serum Glucose 141 H 74-106 mg/dL Problem List/Assessment/Plan Problem List/Assessment/Plan 05/12/24 feels very well, no nausea, abdomen soft appropriately tender, wounds clean and well approximated, cleared for discharge with po antibiotic for another 5 to 7 days return to office about two weeks, may shower after another 72 hours, diet as tolerated. Plan discussed with: Patient, Spouse MAYRA SALAMANCA MD May 12, 2024 12:48
[2024-05-12 13:00] VITALS: BP 109/67; PULSE 74; RESP 16; TEMP 97.9; O2SAT 98
[2024-05-12] MEDS ORDERED: AUG875T PO (16:09)
[2024-05-12] MEDS ORDERED: IBU600T PO (16:18)
[2024-05-12 17:00] VITALS: BP 138/86; PULSE 79; RESP 20; TEMP 98; O2SAT 96
[2024-05-12] MEDS: THIAMINE HCL 100 MG TAB PO ONE (18:00)
[2024-05-12] MEDS: FOLIC ACID 1 MG TAB PO ONE (18:00)
[2024-05-12] MEDS ORDERED: MULTIPLE VITAMIN TAB PO ONE (18:00)
[2024-05-12] MEDS ORDERED: MAGNESIUM OXIDE 400 MG TAB PO ONE (18:00)
--- NOTE | 2024-05-12 21:14 | DVHDSRES ---
Discharge Summary Date of Admission Resident Creating Document: PARAMJIT SIMPSON RESIDENT May 11, 2024 at 04:40 Date of Discharge: May 12, 2024 Admitting Diagnosis Acute appendicitis Labs/Diagnostic Data: Laboratory Results Test 05/12/24 08:23 05/11/24 16:59 05/11/24 05:30 05/11/24 05:05 White Blood Count 8.4 10^3/uL (4.4-10.8) Red Blood Count 4.17 10^6/uL (4.5-5.90) Hemoglobin 12.5 g/dL (13.5-17.5) Hematocrit 35.6 % (41.0-53.0) Mean Corpuscular Volume 85.5 fL (80.0-100.0) Mean Corpuscular Hemoglobin 30.1 pg (28.0-32.0) Mean Corpuscular Hemoglobin Concent 35.2 g/dL (32.0-36.0) Red Cell Distribution Width 12.7 % (11.8-14.3) Platelet Count 175 10^3/uL (140-450) Mean Platelet Volume 9.1 fL (6.9-10.8) Neutrophils (%) (Auto) 79.5 % (37.0-80.0) Lymphocytes (%) (Auto) 13.7 % (10.0-50.0) Monocytes (%) (Auto) 6.5 % (0.0-12.0) Eosinophils (%) (Auto) 0.0 % (0.0-7.0) Basophils (%) (Auto) 0.3 % (0.0-2.0) Neutrophils # (Auto) 6.6 10 ^3/uL (1.6-8.6) Lymphocytes # (Auto) 1.1 10 ^3/uL (0.4-5.4) Monocytes # (Auto) 0.5 10 ^3/uL (0-1.3) Eosinophils # (Auto) 0 10 ^3/uL (0-0.8) Basophils # (Auto) 0 10 ^3/uL (0-0.2) Nucleated Red Blood Cells 0.0 % Sodium Level 139 mmol/L (136-145) Potassium Level 4.0 mmol/L (3.5-5.1) Chloride Level 108 mmol/L (98-107) Carbon Dioxide Level 24 mmol/L (20-31) Anion Gap 7 (5-15) Blood Urea Nitrogen 7 mg/dL (9-23) Creatinine 0.64 mg/dL (0.700-1.30) Glomerular Filtration Rate Calc 129 mL/min (>90) BUN/Creatinine Ratio 10.9 (10.0-20.0) Serum Glucose 141 mg/dL (74-106) Calcium Level 9.2 mg/dL (8.7-10.4) Urine Color Colorless (Yellow) Urine Clarity Clear (Clear) Urine pH 7.0 (5.0-9.0) Urine Specific [place] 1.007 (1.001-1.035) Urine Protein Negative (Negative) Urine Ketones Negative (Negative) Urine Blood Negative /uL (Negative) Urine Nitrite Negative (Negative) Urine Bilirubin Negative (Negative) Urine Urobilinogen Normal mg/dL (Negative) Urine Leukocyte Esterase Negative /uL (Negative) Urine RBC 1 /hpf (0 - 3) Urine Microscopic WBC < 1 /HPF (0-3) Urine Squamous Epithelial Cells None seen /hpf (<5) Urine Bacteria None seen /hpf (None Seen) Urine Glucose Normal mg/dL (Normal) Urine Opiates Screen Pos (NEGATIVE) Urine Fentanyl Screen Pos (NEGATIVE) Urine Barbiturates Screen Neg (NEGATIVE) Urine Phencyclidine Screen Neg (NEGATIVE) Urine Amphetamines Screen Neg (NEGATIVE) Urine Benzodiazepines Screen Pos (NEGATIVE) Urine Cocaine Screen Neg (NEGATIVE) Urine Cannabinoids Screen Neg (NEGATIVE) Influenza Type A Antigen Negative (Negative) Influenza Type B Antigen Negative (Negative) Prothrombin Time 10.8 sec (9.3-11.8) Prothrombin Time INR 1.02 (0.9-1.15) Lactic Acid Level 1.0 mmol/L (0.4-2.0) Total Bilirubin 1.3 mg/dL (0.2-1.0) Aspartate Amino Transferase (AST) 11 U/L (13-40) Alanine Aminotransferase (ALT) 29 U/L (7-40) Alkaline Phosphatase 77 U/L (46-116) Total Protein 7.4 g/dL (5.7-8.2) Albumin 5.2 g/dL (3.2-4.8) Lipase 25 U/L (12-53) Thyroid Stimulating Hormone (TSH) 2.16 uIU/mL (0.55-4.78) Test 05/10/24 21:16 05/10/24 21:10 Urine Mucus Few (None Seen) Plasma/Serum Blood Alcohol < 3.0 mg/dL (<10) Other Laboratory Tests 05/12/24 08:23 Brief Hx & Hospital Course: HPI: 34-year-old male presented with non-radiating right lower quadrant abdominal pain that began suddenly and unprovoked that started yesterday, progressively worsening since. He denies nausea, vomiting, diarrhea, and has no significant medical or surgical history. He admits alcohol dependency, drinking one beer daily, last drink yesterday.CT scan of the abdomen showed acute appendicitis, patient was found to have acute suppurative appendicitis, he underwent laparoscopic appendectomy on 05/11/2024. Hospital course: After laparoscopic appendectomy the patient was evaluated by surgeon who decided the patient was cleared for discharge the patient was tolerating soft mechanical diet and he was advised to follow up with the surgeon and primary care physician 2 weeks patient was discharged on Augmentin b.i.d. for 5 days, and Motrin for pain control as needed. Urinary drug screening was taken after the surgery which explain positive results for fentanyl, benzodiazepines and opiates. Patient does not have any drug addiction. Disposition: Discharge to home Operations or Procedures Patient: KARINE GRAVES Acct: [id number] : 1990 Loc: [facility] Age/Sex: 34/M Room: [facility] / Bed: A Attending Phy: HOME LATIF DATE OF SURGERY: 05/11/2024 PREOPERATIVE DIAGNOSIS: Acute suppurative appendicitis. POSTOPERATIVE DIAGNOSIS: Acute suppurative appendicitis. SURGEON: Mayra Johnson MD TEACHER EDUCATION INSTRUCTOR: Cameron Barton. ANESTHESIA: General endotracheal. ANESTHESIOLOGIST: Dr. Pérez. PROCEDURE: Laparoscopy, laparoscopic appendectomy. DESCRIPTION OF PROCEDURE: Under general endotracheal anesthesia, with the patient's skin prepped and draped, a supraumbilical incision was made and Veress needle inserted into the peritoneal cavity by the hanging drop technique to establish pneumoperitoneum to 15 mmHg pressure by insufflation with carbon dioxide. With the abdomen fully distended, the needle was removed and replaced with a 5 mm trocar port through which a 0-degree viewing laparoscope was inserted and under direct vision, additional 5 and 10 mm ports inserted through the midline approximately 10 cm above the umbilicus and 5 cm beneath the umbilicus respectively. Instrumentation was then introduced and laparoscopy was conducted revealing no obvious unexpected pathology on the serosal surfaces visualized. The appendix was affected by acute appendicitis, was placed on tension traced to the confluence with the cecum at its base. At the confluence with the cecum, it was crossclamped and divided with an Endo-SAM stapler equipped with vascular myla. The fully severed appendix and the mesoappendix were then included in the specimen extraction bag and removed through the 10 mm port site. Subsequently, the right lower quadrant was profusely irrigated, irrigant was aspirated. Hemostasis was meticulously accomplished and found to be complete. At the termination of procedure, there was no bleeding from either the port sites or from the appendicectomy site. Pneumoperitoneum was then evacuated. Instrumentation was withdrawn. Wounds approximated using Monocryl sutures, Dermabond glue and Steri-Strips. The patient remained stable throughout the procedure, left the operating room following an accurate needle and sponge count. The patient's Meagan was thoroughly informed at [phone]. Mayra Johnson MD PF/WAZ TID: [id number] RECEIPT: [id number] DICTATED BY:MAYRA JOHNSON MD DICTATED DATE/TIME:05/11/2437 ELECTRONICALLY SIGNED BY: ELECTRONICALLY CO-SIGNED BY: [place] [id number] Ph: [phone] DIAGNOSTIC IMAGING Diagnostic Imaging Report : [id number] Signed PATIENT: KARINE GRAVES ACCT: [id number] UNIT: [id number] : 1990 LOC: ER ROOM / BED: / AGE / SEX: 34 / M ADM STATUS: REG ER SERVICE 16 ORDERING PHYSICIAN: CAROLA DUKES MD PROCEDURE(s): ABPL - CT AB PEL WO CON-NO ORAL OR IV REASON: rlq pain ORDER NUMBER(s): [id number], ACCESSION NUMBER(s): [id number] Indication: rlq pain Technique: CT axial images of the abdomen and pelvis are obtained without contrast. Coronal and sagittal reformats were obtained. Radiation Dose Information: CTDI volume is 6.4 mGy. Dose-length product is 335 mGy*cm Comparison: None FINDINGS: There is limited interpretation of the abdomen and pelvis without administration of intravenous contrast. Pulmonary emphysematous changes. Adrenal glands, spleen, pancreas liver unremarkable in shape. No CT evidence for cholelithiasis. Kidneys demonstrate no hydronephrosis. Stomach is partially distended. Small bowel loops normal in caliber. Moderate volume stool within the colon. Appendix is inflamed and measures 10 mm in diameter. 2 mm appendicolith. Periappendiceal stranding. Bladder partially distended. No free pelvic fluid. No inguinal lymphadenopathy. IMPRESSION: 1. Acute appendicitis. Findings were communicated to Dr. Dukes at 2212 hours on 05/11/2024. ATED BY: KENDRICK MCDANIEL MD DICTATED DATE/TIME: 05/10/242214 SIGNED BY: KENDRICK MCDANIEL MD SIGNED DATE/TIME: 05/10/242214 CC: Condition at Discharge: Fair Final Diagnosis/Problems List # Acute abdominal pain due to acute suppurative appendicitis s/p laparoscopic appendectomy # Ruled out sepsis # Primary hypertension # Alcohol abuse Discharge Disposition: Home SNF Discharge Will this Physician continue t: No Discharge Instruct/Medications Diet: See Comment Diet comment: advance diet as tolerated Activity: No Restrictions, As Tolerated Follow Up/Referral: follow up with pcp within 2 weeks follow up with surgeon dr johnson in 2 weeks Medications: script to pharmacy Discharge Statement: "Patient was advised to return to the ER or call 911 if any headaches, dizziness, shortness of breath, chest pain, abdominal pain, bleeding, fevers, or worsening of medical condition. Patient was counseled about treatment plan, medications, possible side effects, patientverbalized understanding. All questions were answered to the best of my ability. This discharge took greater then 30 minutes in planning, reviewing documentation, counseling the patient, and discussing with other team members." ASSESSMENT ASSESSMENT Assessment acute appendicitis s/p laparoscopic appendectomy PARAMJIT SIMPSON RESIDENT May 12, 2024 21:14
[2024-05-13] MEDS ORDERED: FOLIC ACID 1 MG TAB PO SCH (10:00)
[2024-05-13] MEDS ORDERED: THIAMINE HCL 100 MG TAB PO SCH (10:00)
[2024-05-13] MEDS ORDERED: MAGNESIUM OXIDE 400 MG TAB PO SCH (10:00)
[2024-05-13] MEDS ORDERED: MULTIPLE VITAMIN TAB PO SCH (10:00)
== END 2024-05-12 19:03 | disposition home or self-care (01) | DRG 399 ==
LOC: ER 20:20 → OVERFLOW 05-11 04:40 → WEST WING 05-11 04:44
PROVIDERS: ADMIT Student in an Organized Health Care Education/Training Program; ATTEND Student in an Organized Health Care Education/Training Program
PROC: 0DTJ4ZZ Resection of Appendix, Percutaneous Endoscopic Approach (ICD-10-PCS; principal; 2024-05-11 10:57)
DX: K35.80 Unspecified acute appendicitis (principal); D72.829 Elevated white blood cell count, unspecified; F10.10 Alcohol abuse, uncomplicated; I10 Essential (primary) hypertension; Z83.3 Family history of diabetes mellitus; Z79.899 Other long term (current) drug therapy; Y90.0 Blood alcohol level of less than 20 mg/100 ml
CPT/HCPCS: 36415; 71045; 74176; 80048; 80053; 80307; 80320; 81001; 83605; 83690; 84443; 85025; 85610; 87070; 87075; 87205; 87804; 96365; 96375; 99291; G0378; J1100; J2250; J2405; J2470; J2704; J3490; J7060